=== PATIENT | male | born 1990 | race Two or more races ===

== ENCOUNTER 2016-12-21 21:45 | Emergency (ER) | payer MEDICAID ==
[~2016-12-21] VITALS: Ht 167.6 cm; Wt 59.0 kg
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
[2016-12-21] MEDS ORDERED: IBUPROFEN 400 MG TABLET ONE (22:11)
[2016-12-21] MEDS ORDERED: ONDANSETRON HCL/PF 4 MG/2 ML VIAL ONE (22:11)
--- NOTE | 2016-12-21 22:11 | NUR ---
DR BAEZ AT BEDSIDE FOR EVAL.
[2016-12-21] MEDS ORDERED: IBUPROFEN 400 MG TABLET PO ONE (22:30)
[2016-12-21] MEDS ORDERED: ONDANSETRON HCL/PF 4 MG/2 ML VIAL IM ONE (22:30)
--- NOTE | 2016-12-21 22:46 | NUR ---
Patient discharged to home in stable condition. Written and verbal after care instructions given. Patient verbalizes understanding of instruction.
[2016-12-21 22:47] VITALS: BP 128/76
== END 2016-12-21 22:48 | disposition home or self-care (01) ==
LOC: ER 21:46
DX: F10.129 Alcohol abuse with intoxication, unspecified (principal); R51 Headache; R11.0 Nausea
CPT/HCPCS: 96372; 99283; A4606; J2405; Z7610